=== PATIENT | female | born 1985 | race Caucasian/White ===

== ENCOUNTER 2021-01-27 12:19 | Inpatient (IN) | payer BC, SELFPAY ==
[2021-01-27] VITALS (164 sets, daily range): BP systolic 86–144; BP diastolic 27–98; PULSE 96–210; TEMP 36.8–38.7; O2SAT 89–100; BMI 32.8
--- NOTE | 2021-01-27 13:19 | LDADM ---
This patient, Ailin Mccormick, was admitted to Labor/Delivery/Recovery 102 on 01/27/21 at 12:19. Plans for labor, pain management and were discussed with patient. Patient/family oriented to hospital policies and general routines including ID bracelet, bed and alarms, pain management, procedures, bathroom and other care routines, personal items, smoking policy, room service/diet and guest tray routines, security routines, call light and visiting hours. Patient/Family are encouraged to report perceived risks to care and to ask questions if they do not understand what they are told or what they should do. See OBIX for further documentation.
[2021-01-27] MEDS: LACTATED RINGERS 1,000 ML 125 ML IV CONT ×4 (13:22→23:11)
[2021-01-27 13:40] LABS: Basophils Percent Auto 0.3 % (0.2-1.2); Eosinophils Percent Auto 0.1 % (0-4.4); Hematocrit 37.8 % (37.0-47.0); Hemoglobin 12.4 g/dL (12.0-15.0); Immature Granulocyte Absolute 0.11 K/mm3 (0.00-0.031); Lymphocytes Absolute Auto 1.23 K/mm3 (0.9-3.2); Lymphocytes Percent Auto 11.6 % (18.3-44.2); Mean Corpuscular HGB Conc 32.8 g/dl (32-36); Mean Corpuscular Hemoglobin 29.7 pg (26-34); Mean Corpuscular Volume 90.6 fl (80-100); Mean Platelet Volume 11.8 fl (7.4-10.4); Monocytes Absolute Auto 0.6 K/mm3 (0.1-0.6); Monocytes Percent Auto 5.8 % (2.6-8.5); Neutrophils Absolute Auto 8.6 K/mm3 (1.3-6.7); Neutrophils Percent Auto 81.2 % (45.5-73.1); Nucleated Red Blood Cells Perc 0.2 % (0.0-0.2); Platelet Count Result 199 k/mm3 (150-375); Red Blood Count 4.17 M/mm3 (4.2-5.4); White Blood Count 10.6 K/mm3 (4.5-10.0)
--- NOTE | 2021-01-27 14:22 | WPDANESEPP ---
Anes - Eval Pre Procedure Procedure: labor epidural Date/Time: 01/27/21 14:22 Surgeon: bibi Pre Op Diagnosis: Labor Patient Data Age: 35 Gender: F Height: 1.63 m Weight: 86.7 kg Last Vital Signs Pulse 125 H 01/27/21 14:01 BP 130/68 01/27/21 14:01 Pulse Ox 100 01/27/21 14:21 Allergies Allergy/AdvReac Type Severity Reaction Status Date / Time No Known Allergies Allergy Verified 01/27/21 13:07 Home Medications Medication Instructions Recorded Confirmed Type PNV cmb#95-ferrous fumarate-FA 1 tablet PO DAILY 12/30/20 01/27/21 History [] levothyroxine 100 mcg PO DAILY 12/30/20 01/27/21 History Laboratory Tests 01/27/21 01/27/21 13:27 13:27 WBC 10.6 K/mm3 H K/mm3 (4.5-10.0) RBC 4.17 M/mm3 L M/mm3 (4.2-5.4) Hgb 12.4 g/dL g/dL (12.0-15.0) Hct 37.8 % % (37.0-47.0) MCV 90.6 fl fl (80-100) MCH 29.7 pg pg (26-34) MCHC 32.8 g/dl g/dl (32-36) RDW 14.0 % % (11.5-14.5) Plt Count 199 k/mm3 k/mm3 (150-375) MPV 11.8 fl H fl (7.4-10.4) Immature Gran % (Auto) 1.0 % H % (0-0.5) Neut % (Auto) 81.2 % H % (45.5-73.1) Lymph % (Auto) 11.6 % L % (18.3-44.2) [place] % (Auto) 5.8 % % (2.6-8.5) Eos % (Auto) 0.1 % % (0-4.4) Baso % (Auto) 0.3 % % (0.2-1.2) Lymph # (Auto) 1.23 K/mm3 K/mm3 (0.9-3.2) [place] # (Auto) 0.6 K/mm3 K/mm3 (0.1-0.6) Eos # (Auto) 0.0 K/mm3 K/mm3 (0-0.3) Baso # (Auto) 0.0 K/mm3 K/mm3 (0.0-0.1) Abs Immat Gran (auto) 0.11 K/mm3 H K/mm3 (0.00-0.031) Absolute Neuts (auto) 8.6 K/mm3 H K/mm3 (1.3-6.7) Absolute Nucleated RBC 0.0 K/mm3 K/mm3 (0.0-0.012) Nucleated RBC % 0.2 % % (0.0-0.2) RPR Pending Patient hx anesthesia problems: none Family hx anesthesia problems: none Results Review: All pre-operative results and documents have been reviewed as part of the pre-operative evaluation. [facility] Family History Family History (Updated 12/30/20 @ 12:32 by Caridad Guzman RN) Other No pertinent family history Social History Social History Smoking status: Never smoker Substance use: former Spiritual care concerns: No Exam Day of Procedure 01/27/21 14:22
--- NOTE | 2021-01-27 16:26 | PM.IMHP ---
H&P: HPI History of Present Illness Date/Time: 01/27/21 16:26 Chief Complaint: labor Narrative: 35 yo at 39w5d who presents with labor. She reports regular painful contractions. She denies any vaginal bleeding or leakage of fluid. This is an IVF with transfer date of 05/13/20. She also has hypothyroidism on synthroid 100 mcg. Review of Systems Cardiovascular: Cardiovascular: Denies chest pain, Denies leg edema, Denies palpitations, Denies dyspnea and Denies dyspnea on exertion Respiratory: Respiratory: Denies cough, Denies dyspnea and Denies dyspnea on exertion Gastrointestinal: Gastrointestinal: Denies abdominal pain, Denies constipation, Denies diarrhea, Denies nausea and Denies vomiting Genitourinary: Genitourinary: Denies hematuria, Denies urinary frequency, Denies dysuria, Denies pelvic pain, Denies urinary incontinence and Denies vaginal discharge Neurologic: Reports system reviewed and no additional complaints, except as documented Psychiatric: Psychiatric: Reports no additional psychiatric complaints Endocrine: Endocrine: Denies palpitations [facility] Family History Family History (Updated 12/30/20 @ 12:32 by Caridad Guzman RN) Other No pertinent family history Social History Social History Smoking status: Never smoker Substance use: former Spiritual care concerns: No Meds Home Medications and Allergies Home Medications Medication Instructions Recorded Confirmed Type PNV cmb#95-ferrous fumarate-FA 1 tablet PO DAILY 12/30/20 01/27/21 History [] levothyroxine 100 mcg PO DAILY 12/30/20 01/27/21 History Allergies Allergy/AdvReac Type Severity Reaction Status Date / Time No Known Allergies Allergy Verified 01/27/21 13:07 Vital Signs Vital Signs - 24 hr 01/27/21 13:15 01/27/21 13:30 01/27/21 13:45 Temperature Pulse Rate 127 H 114 H 118 H Blood Pressure 122/70 121/64 126/73 Pulse Oximetry 01/27/21 14:01 01/27/21 14:21 01/27/21 14:26 Temperature Pulse Rate 125 H Blood Pressure 130/68 Pulse Oximetry 100 100 01/27/21 14:30 01/27/21 14:34 01/27/21 14:35 Temperature Pulse Rate 210 H 142 H Blood Pressure 132/86 139/88 Pulse Oximetry 100 100 01/27/21 14:36 01/27/21 14:38 01/27/21 14:40 Temperature Pulse Rate 148 H 118 H Blood Pressure 102/57 L 122/86 Pulse Oximetry 100 01/27/21 14:41 01/27/21 14:43 01/27/21 14:46 Temperature Pulse Rate 150 H 136 H Blood Pressure 113/74 113/68 Pulse Oximetry 100 99 01/27/21 14:48 01/27/21 14:51 01/27/21 14:53 Temperature Pulse Rate 145 H 138 H 139 H Blood Pressure 104/91 H 122/66 114/47 L Pulse Oximetry 94 95 01/27/21 14:55 01/27/21 14:58 01/27/21 15:00 Temperature 36.8 C Pulse Rate 132 H 129 H 125 H Blood Pressure 103/55 L 110/51 L 111/52 L Pulse Oximetry 97 01/27/21 15:03 01/27/21 15:05 01/27/21 15:08 Temperature Pulse Rate 127 H 120 H 126 H Blood Pressure 115/55 L 116/57 L 98/56 L Pulse Oximetry 96 96 01/27/21 15:10 01/27/21 15:13 01/27/21 15:16 Temperature Pulse Rate 147 H 142 H 131 H Blood Pressure 115/60 112/57 L 98/47 L Pulse Oximetry 99 01/27/21 15:18 01/27/21 15:20 01/27/21 15:23 Temperature Pulse Rate 132 H 141 H Blood Pressure 86/27 L 96/75 L 91/34 L Pulse Oximetry 97 98 01/27/21 15:25 01/27/21 15:28 01/27/21 15:32 Temperature Pulse Rate 126 H 137 H Blood Pressure 115/56 L 103/50 L Pulse Oximetry 96 01/27/21 15:33 01/27/21 15:38 01/27/21 15:43 Temperature Pulse Rate Blood Pressure Pulse Oximetry 100 90 97 01/27/21 15:45 01/27/21 15:48 01/27/21 15:53 Temperature Pulse Rate 128 H Blood Pressure 94/55 L Pulse Oximetry 95 89 L 01/27/21 15:57 01/27/21 16:02 01/27/21 16:07 Temperature Pulse Rate 153 H Blood Pressure 144/69 H Pulse Oximetry 98 100 98 01/27/21 16:12 01/27/21 16:15 01/27/21 16:17 Temperature Pulse Rate 132 H Blo
[2021-01-27] MEDS: FAMOTIDINE 20 MG/2 ML VIAL IV PUSH (18:44)
[2021-01-27] MEDS: AMPICILLIN 2 GM/NS 100 ML 2 GM/100 ML BAG IVPB (19:27)
[2021-01-27 19:43] LABS: Basophils Percent Auto 0.2 % (0.2-1.2); Hematocrit 31.4 % (37.0-47.0); Hemoglobin 10.5 g/dL (12.0-15.0); Immature Granulocyte Absolute 0.09 K/mm3 (0.00-0.031); Immature Granulocyte Percent A 0.8 % (0-0.5); Lymphocytes Absolute Auto 1.16 K/mm3 (0.9-3.2); Lymphocytes Percent Auto 9.9 % (18.3-44.2); Mean Corpuscular HGB Conc 33.4 g/dl (32-36); Mean Corpuscular Hemoglobin 30.2 pg (26-34); Mean Corpuscular Volume 90.2 fl (80-100); Mean Platelet Volume 11.3 fl (7.4-10.4); Monocytes Absolute Auto 0.7 K/mm3 (0.1-0.6); Monocytes Percent Auto 5.8 % (2.6-8.5); Neutrophils Absolute Auto 9.8 K/mm3 (1.3-6.7); Neutrophils Percent Auto 83.3 % (45.5-73.1); Platelet Count Result 177 k/mm3 (150-375); Red Blood Count 3.48 M/mm3 (4.2-5.4); White Blood Count 11.7 K/mm3 (4.5-10.0)
[2021-01-27] MEDS: OXYTOCIN 30 UNITS/NS 500 ML 30 UNITS/500 ML BAG 6 UNITS IV CONT (21:36)
--- NOTE | 2021-01-27 21:45 | PC.NURSE ---
all charting done after 1814 on 01/27/21 until 214401/27/21 was charted by bruce murray rn
[2021-01-27] MEDS: AMPICILLIN 1 GM/NS 50 ML 1 GM/50 ML BAG IVPB (23:11)
[2021-01-28] VITALS (110 sets, daily range): BP systolic 66–149; BP diastolic 36–97; PULSE 79–184; RESP 16–20; TEMP 36.3–38.3; O2SAT 77–100
[2021-01-28] MEDS: ONDANSETRON INJ 4 MG/2 ML VIAL IV PUSH (00:18)
[2021-01-28] MEDS: fentaNYL CITRATE INJ (*CRX) 100 MCG/2 ML VIAL 50 MCG IV PUSH (01:01)
[2021-01-28] MEDS: LACTATED RINGERS 1,000 ML 125 ML IV CONT ×2 (03:40→06:21)
[2021-01-28] MEDS: AMPICILLIN 1 GM/NS 50 ML 1 GM/50 ML BAG IVPB ×2 (03:40→07:35)
--- NOTE | 2021-01-28 06:29 | PM.OBPNLAB ---
Pain Control Date/time seen: 01/28/21 06:29 Comments: Comfortable Pelvic Exam Dilation (cm): 10 Effacement (%): 100 station: +1 Contractions Contraction frequency: 4 Contraction pattern: Regular Status status: Category l Assessment and Plan Comments: Begin pushing
--- NOTE | 2021-01-28 08:40 | PM.OBPRVD ---
OB - Delivery Note Procedure Delivery date: 01/28/21 Procedure: Delivery augmentation: pitocin Delivery monitor: external FHT, external uterine and internal uterine Route of delivery: Laceration Description: Vaginal - 1st Degree Delivery repair: vicryl (3-0) Specimen: Yes (cord blood, placenta) Quantitative Blood Loss (ml): 220 Anesthesia type: Epidural Disposition: PACU Complications: None Narrative: 35 y/o at 39 6/7 weeks gestation who presented to the hospital with contractions. Labor was diagnosed. She received an epidural for pain control. Labor was augmented with oxytocin was administered intravenously. Amniotomy was performed with return of clear fluid. She developed a fever during labor, treated with ampicillin and acetaminophen. Her labor progressed and her cervix dilated completely. She pushed with good effort and delivered the infant's head to the perineum. A loose nuchal cord was reduced and the body delivered. The cord was reduced. The nose and mouth were bulb suctioned. After a delay, the cord was clamped and cut. The was handed off the field. Cord blood was collected. The placenta delivered spontaneously and was grossly normal in appearance. The usual 3 vessel cord was noted. A shallow, distal vaginal laceration was sustained. This was reapproximated using 3 0 Vicryl in a single figure of eight suture. Excellent hemostasis resulted as did excellent reapproximation of the normal anatomy. Needle and instrument counts were correct. The patient was taken to recovery room in stable condition. The infant went to the nursery in stable condition. I was present and scrubbed for the entire delivery. Baby Date of : 01/28/21 Time of : 08:21 Weeks of gestation at delivery: 39 gender: Female Weight (pounds): 6 Weight (ounces): 7 presentation: vertex position: Right Occiput Posterior Placenta delivery description: Spontaneous and Normal Configuration cord vessel description: 3 Vessels, Nuchal Cord and Delayed Cord Clamping score one minute: 8 score five minutes: 9
--- NOTE | 2021-01-28 08:47 | P.DS_ITS ---
DS: Admitting Diagnosis Discharge Date 01/29/21 Admitting Diagnosis IUP at 39 5/7 weeks Labor DS: Discharge Diagnosis Discharge Diagnosis (1) (normal spontaneous vaginal delivery): Code(s): O80 - Encounter for full-term uncomplicated delivery Status: Acute (2) Intrapartum fever, delivered: Code(s): O75.2 - Pyrexia during labor, not elsewhere classified Status: Acute Assessment and Plan: A: Intrapartum fever, resolved. Likely secondary to COVID-19 vaccine the previous day. Doubt infectious morbidity. OB - DS: Summary OB Procedures : None OB Procedures Intrapartum: Spontaneous Vag Delivery OB Procedures: : None DS: Data Data Completed and Pending Labs on day of discharge: Labs from last 24 hours 01/27/21 01/27/21 01/27/21 19:32 13:27 13:27 WBC 11.7 H RBC 3.48 L Hgb 10.5 L Hct 31.4 L MCV 90.2 MCH 30.2 MCHC 33.4 RDW 14.0 Plt Count 177 MPV 11.3 H Immature Gran % (Auto) 0.8 H Neut % (Auto) 83.3 H Lymph % (Auto) 9.9 L [place] % (Auto) 5.8 Eos % (Auto) 0.0 Baso % (Auto) 0.2 Lymph # (Auto) 1.16 [place] # (Auto) 0.7 H Eos # (Auto) 0.0 Baso # (Auto) 0.0 Abs Immat Gran (auto) 0.09 H Absolute Neuts (auto) 9.8 H Absolute Nucleated RBC 0.0 Nucleated RBC % 0.0 RPR Pending Blood Type O Positive Antibody Screen Negative 01/27/21 13:27 WBC 10.6 H RBC 4.17 L Hgb 12.4 Hct 37.8 MCV 90.6 MCH 29.7 MCHC 32.8 RDW 14.0 Plt Count 199 MPV 11.8 H Immature Gran % (Auto) 1.0 H Neut % (Auto) 81.2 H Lymph % (Auto) 11.6 L [place] % (Auto) 5.8 Eos % (Auto) 0.1 Baso % (Auto) 0.3 Lymph # (Auto) 1.23 [place] # (Auto) 0.6 Eos # (Auto) 0.0 Baso # (Auto) 0.0 Abs Immat Gran (auto) 0.11 H Absolute Neuts (auto) 8.6 H Absolute Nucleated RBC 0.0 Nucleated RBC % 0.2 RPR Blood Type Antibody Screen Discharge Plan Discharge Attending physician on discharge: Richard Kraft Discharging Clinician: Richard Kraft Patient Disposition: Home, Self-Care Activity: pelvic rest Diet: regular Discharge Instructions: Call or return if temperature above 100.4? F, increased abdominal pain, increased vaginal bleeding or any new problems. Stand Alone Forms: General Discharge Information Follow-up/Referrals: Francisco Javier Mckay MD [Physician] - 6 Weeks Discharge Medications: New ibuprofen 600 mg tablet 600 mg PO Q6H PRN (Reason: cramps) Qty: 30 RF: 0 Continued levothyroxine 100 mcg Tablet 100 mcg PO DAILY RF: 0 PNV cmb#95-ferrous fumarate-FA [] 28 mg iron- 800 mcg Tablet 1 tablet PO DAILY RF: 0 Date of admission: 01/27/21 12:19 Primary Care Provider: PHYSICIAN,CLIENT SUPPORT MANAGER Admitting Provider: Francisco Javier Mckay Attending physician on admission: Francisco Javier Mckay Condition: Stable
[2021-01-28] MEDS: OXYTOCIN 30 UNITS/NS 500 ML 30 UNITS/500 ML BAG 125 UNITS IV CONT (09:02)
--- NOTE | 2021-01-28 12:09 | OBPPTRN ---
1119-Patient transferred to post room #281 via wheelchair. Support person present. Oriented to unit, room, information board, rooming in, admission packet and security measures. Patient verbalizes understanding.
[2021-01-28 13:13] LABS: Rapid Plasma Reagin Non-Reactive (NonReactive)
--- NOTE | 2021-01-28 15:29 | PC.NURSE ---
1200 breast feeding note; nurse at bedside to assist with breast feeding; baby awake rooting and eager; reviewed with mother, positioning, alignment, use of c-hold, nose to nipple latch on technique and how to assess for deep latch; several attempts required, but baby able to latch and maintain latch; baby demonstrated vigorous, rhythmic sucking with maintained latch, apparent effective breast feeding; mother reported comfortable breast feeding; mother nursed on two sides, latching to the second side independently. reviewed frequency/duration of feedings, use of feeding log to monitor feedings and output per day of age; breast feeding pages in mother baby guide flagged, including LC contact information. She was encouraged to call for nurse assistance at every feeding. Mother reports hx of hypothyroidism, on meds and lab values WNL; also infertility requiring IVF , and breast augmentation with incision line around nipple. Reviewed with mother that she and baby will be closely followed for the following: baby is nursing, latching, and demonstrating effective breast feeding, 8-12 times a day stable weight jaundice levels WNL appropriate output per day of age. She was encouraged to stay in close contact with baby's DrRemi to monitor these things as well as being aware that her milk comes in, baby nurses well and is contented after feedings, noting breast changes after feedings once her milk is in. Mother voiced understanding of all information shared.
[2021-01-29 00:20] VITALS: BP 130/74; PULSE 102; RESP 16; TEMP 36.1; O2SAT 98
--- NOTE | 2021-01-29 05:05 | PC.NURSE ---
Per mom she would like to only bottle feed at this time, she wishes to not use a breast pump now and feels that baby is doing well with bottle feeding. Note to also be added to baby's chart with feeding assessment.
[2021-01-29 06:56] LABS: Basophils Percent Auto 0.2 % (0.2-1.2); Eosinophils Absolute Auto 0.2 K/mm3 (0-0.3); Eosinophils Percent Auto 1.3 % (0-4.4); Hematocrit 31.1 % (37.0-47.0); Hemoglobin 10.3 g/dL (12.0-15.0); Immature Granulocyte Absolute 0.22 K/mm3 (0.00-0.031); Immature Granulocyte Percent A 1.2 % (0-0.5); Lymphocytes Absolute Auto 2.92 K/mm3 (0.9-3.2); Mean Corpuscular HGB Conc 33.1 g/dl (32-36); Mean Corpuscular Hemoglobin 30.3 pg (26-34); Mean Corpuscular Volume 91.5 fl (80-100); Mean Platelet Volume 11.7 fl (7.4-10.4); Monocytes Absolute Auto 0.9 K/mm3 (0.1-0.6); Monocytes Percent Auto 4.9 % (2.6-8.5); Neutrophils Absolute Auto 13.9 K/mm3 (1.3-6.7); Neutrophils Percent Auto 76.4 % (45.5-73.1); Nucleated Red Blood Cells Perc 0.1 % (0.0-0.2); Platelet Count Result 183 k/mm3 (150-375); Red Cell Distribution Width 14.6 % (11.5-14.5); White Blood Count 18.3 K/mm3 (4.5-10.0)
[2021-01-29 08:00] VITALS: PULSE 85; RESP 16; O2SAT 98
[2021-01-29 08:30] VITALS: BP 121/78; PULSE 85; RESP 16; TEMP 36.6; O2SAT 98
--- NOTE | 2021-01-29 09:37 | WPDANLDPN2 ---
Anes-Prog Note L&D Date/Time: 01/29/21 09:37 Comfortable throughout: labor and delivery Neuraxial method: epidural Epidural/Spinal procedure site: clean & non-tender Neuro status: Neuro function grossly intact. Cardiovascular status: normal Respiratory status: normal Airway patency: baseline Mental status: baseline Post-Op hydration status: normal Vital Signs: Last Vital Signs Temp 97.8 F 01/29/21 08:30 Pulse 85 01/29/21 08:30 Resp 16 01/29/21 08:30 BP 121/78 01/29/21 08:30 Pulse Ox 98 01/29/21 08:30 Pain score (VAS): 0 Post-procedural complaints: none Patient feedback: Patient satisfied with anesthetic care.
--- NOTE | 2021-01-29 09:56 | PM.OBPNVD ---
OB - PN: Subj Subjective Date/time seen: 01/29/21 09:56 Narrative: Pain OK. Would like to go home. OB - PN: Obj Data Labs CBC & Chem 7: 01/29/21 04:46 Labs: Laboratory Results - last 24 hr 01/27/21 01/29/21 13:27 04:46 WBC 18.3 H RBC 3.40 L Hgb 10.3 L Hct 31.1 L MCV 91.5 MCH 30.3 MCHC 33.1 RDW 14.6 H Plt Count 183 MPV 11.7 H Immature Gran % (Auto) 1.2 H Neut % (Auto) 76.4 H Lymph % (Auto) 16.0 L [place] % (Auto) 4.9 Eos % (Auto) 1.3 Baso % (Auto) 0.2 Lymph # (Auto) 2.92 [place] # (Auto) 0.9 H Eos # (Auto) 0.2 Baso # (Auto) 0.0 Abs Immat Gran (auto) 0.22 H Absolute Neuts (auto) 13.9 H Absolute Nucleated RBC 0.0 Nucleated RBC % 0.1 RPR Non-reactive OB - PN A/P Plan Comments: A: PPD#1, doing well. P: Home to f/u 6 weeks. Exam Psych: Other: AVSS ABD soft, nontender, fundus firm EXT nontender
--- NOTE | 2021-01-29 13:34 | PC.NURSE ---
Patient viewed the discharge video Mother & Baby Care, The First Two Weeks . Patient was given the opportunity and encouraged to ask questions. Patient verbalized understanding of information shared and has been given the mother/baby guide for home reference.
[2021-01-31 08:43] VITALS: BP 137/83; PULSE 93; RESP 20; TEMP 37.1; O2SAT 100
== END 2021-01-29 15:38 | disposition home or self-care (01) | DRG 807 ==
LOC: ANHLDR 01-28 08:48 → ANHOB2 01-29 12:23 → ANHLDR 02-01 07:26 → ANHOB2 02-01 07:26
PROVIDERS: Admitting Provider Student in an Organized Health Care Education/Training Program; Visit Provider Obstetrics & Gynecology
DX: O75.2 Pyrexia during labor, not elsewhere classified (principal); Z37.0 Single live birth; O99.284 Endocrine, nutritional and metabolic diseases complicating childbirth; E03.9 Hypothyroidism, unspecified; O70.0 First degree perineal laceration during delivery; O69.81X0 Labor and delivery complicated by cord around neck, without compression, not applicable or unspecified; Z3A.39 39 weeks gestation of pregnancy
CPT/HCPCS: 36415; 85025; 86592; 86850; 86900; 86901; 88307; A9270; J0131; J0290; J2405; J2590; J2795; J3010; J7120